=== PATIENT | male | born 1995 | race Caucasian/White ===

== ENCOUNTER 2017-05-06 01:13 | Emergency (ER) | payer SELFPAY ==
[~2017-05-06] VITALS: Ht 188 cm; Wt 86.4 kg
[2017-05-06 01:16] VITALS: BP 146/83; PULSE 99; TEMP 99.1
[2017-05-06] MEDS ORDERED: ZOLOFT 50MG50 MG PO (01:19)
[2017-05-06] MEDS ORDERED: CEPHALEXIN500 M1 PO (05:12)
== END 2017-05-06 02:18 | disposition left against medical advice (07) ==
LOC: COL.ER 01:13
DX: S69.91XA Unspecified injury of right wrist, hand and finger(s), initial encounter (principal); W22.8XXA Striking against or struck by other objects, initial encounter

== ENCOUNTER 2017-05-06 02:31 | Emergency (ER) | payer SELFPAY ==
[~2017-05-06] VITALS: Ht 188 cm; Wt 88.6 kg
[~2017-05-06 02:31] MED LIST: ZOLOFT 50MG50 MG PO
[2017-05-06 02:32] VITALS: TEMP 98.3
[2017-05-06] MEDS ORDERED: CEPHALEXIN500 M1 PO (05:12)
[2017-05-06 05:30] VITALS: BP 114/64; PULSE 78
== END 2017-05-06 05:30 | disposition home or self-care (01) ==
LOC: COL.ER 02:31
DX: S61.511A Laceration without foreign body of right wrist, initial encounter (principal); S66.901A Unspecified injury of unspecified muscle, fascia and tendon at wrist and hand level, right hand, initial encounter; F32.9 Major depressive disorder, single episode, unspecified; W22.8XXA Striking against or struck by other objects, initial encounter; W25.XXXA Contact with sharp glass, initial encounter; Y92.410 Unspecified street and highway as the place of occurrence of the external cause